=== PATIENT | female | born 1985 | race Caucasian/White ===

== ENCOUNTER 2017-01-15 09:03 | Emergency (ER) | payer SELFPAY ==
[2017-01-15 11:04] VITALS: BP 131/74
[2017-01-16 04:13] LABS: RAPID PLASMA REAGIN Non Reactive (Non Reactive)
== END 2017-01-15 11:04 | disposition home or self-care (01) ==
LOC: ED 09:03
PROVIDERS: Emergency Medicine
DX: R10.2 Pelvic and perineal pain (principal); Z30.432 Encounter for removal of intrauterine contraceptive device
CPT/HCPCS: 87491; 87591; J0696; J1885

== ENCOUNTER 2017-04-20 01:05 | Emergency (ER) | payer SELFPAY ==
[~2017-04-20] VITALS: Ht 162.6 cm; Wt 59.0 kg
[2017-04-20 01:10] VITALS: BP 135/88
== END 2017-04-20 02:41 | disposition other institution (70) ==
LOC: ED 01:05
DX: S80.11XA Contusion of right lower leg, initial encounter (principal); S09.90XA Unspecified injury of head, initial encounter; Y08.89XA Assault by other specified means, initial encounter; Y93.89 Activity, other specified; Y99.8 Other external cause status; Y92.89 Other specified places as the place of occurrence of the external cause
CPT/HCPCS: Q0092

== ENCOUNTER 2017-04-20 01:05 | Emergency (ER) | payer OTHER | END 2017-04-20 02:41 | disposition other institution (70) | LOC: ED 01:05 | DX: Z02.89 Encounter for other administrative examinations (principal) ==

== ENCOUNTER 2017-05-18 09:59 | Emergency (ER) | payer SELFPAY ==
[~2017-05-18] VITALS: Ht 160 cm; Wt 60.0 kg
[2017-05-18 10:05] VITALS: BP 112/62
== END 2017-05-18 11:40 | disposition left against medical advice (07) ==
LOC: ED 09:59
DX: R10.9 Unspecified abdominal pain (principal); Z53.21 Procedure and treatment not carried out due to patient leaving prior to being seen by health care provider

== ENCOUNTER 2017-05-19 21:23 | Emergency (ER) | payer SELFPAY ==
[2017-05-20 00:36] LABS: CALCIUM 8.4 mg/dL (8.5-10.1); CHLORIDE SERUM 105 mmol/L (98-107); CREATININE SERUM 0.6 mg/dL (0.6-1.0); GFR1 > 60 mL/min; GLUCOSE SERUM 95 mg/dL (74-106); POTASSIUM SERUM 3.9 mmol/L (3.5-5.1); SODIUM SERUM 139 mmol/L (136-145)
[2017-05-20 00:42] LABS: ALBUMIN 3.8 g/dL (3.4-5.0); ALKALINE PHOSPHATASE 69 U/L (46-116); ALT/SGPT 19 U/L (14-59); AST/SGOT 14 U/L (15-37); BILIRUBIN TOTAL 0.5 mg/dL (0.20-1.00); LIPASE 186 IU/L (73-393); TOTAL PROTEIN, SERUM 7.1 g/dL (6.4-8.2)
[2017-05-20 01:02] LABS: BASOPHIL % 0.4 % (0-2); PLATELET COUNT 331 x10^3mcL (130-400); RED CELL DISTRIBUTION WIDTH 14.4 % (11.5-14.5)
[2017-05-20 01:23] LABS: UA SPECIFIC GRAVITY 1.025 (1.005-1.035); microscopic required? YES
[2017-05-20 01:24] LABS: urine erythrocyte NEGATIVE (NEGATIVE)
[2017-05-20 03:43] VITALS: BP 144/78
== END 2017-05-20 03:10 | disposition home or self-care (01) ==
LOC: ED 21:23
PROVIDERS: Emergency Medicine Emergency Medical Services
DX: N39.0 Urinary tract infection, site not specified (principal); Z33.1 Pregnant state, incidental
CPT/HCPCS: J2270

== ENCOUNTER 2017-06-19 09:43 | Emergency (ER) | payer OTHER ==
[2017-06-19 11:54] LABS: microscopic required? NO
[2017-06-19 12:36] LABS: UA SPECIFIC GRAVITY 1.025 (1.005-1.035); urine erythrocyte NEGATIVE (NEGATIVE)
[2017-06-19 13:12] VITALS: BP 112/65
== END 2017-06-19 13:12 | disposition home or self-care (01) ==
LOC: ED 09:43
PROVIDERS: Emergency Medicine Emergency Medical Services
DX: S30.1XXA Contusion of abdominal wall, initial encounter (principal); M79.605 Pain in left leg; M79.604 Pain in right leg; M54.5 Low back pain; J45.909 Unspecified asthma, uncomplicated; Y04.2XXA Assault by strike against or bumped into by another person, initial encounter; Y99.8 Other external cause status; Y93.89 Activity, other specified; Y92.89 Other specified places as the place of occurrence of the external cause